=== PATIENT | male | born 1975 | race Caucasian/White ===

== ENCOUNTER 2018-10-09 19:51 | Emergency (ER) | payer BC ==
[2018-10-09] MEDS ORDERED: Acetaminophen 325 MG Tab PO ONE (20:28)
[2018-10-09] MEDS ORDERED: Sodium Chloride 0.9% 10 ML Syringe FLUSH PRN (20:28)
[2018-10-09] MEDS ORDERED: Ketorolac 30 MG/ML SDV IVPUSH SCH (20:30)
--- NOTE | 2018-10-09 20:52 | CT ---
Head CT Technique: Multiple axial sections through the brain were obtained. Intravenous contrast was not utilized. Comparison: No prior intracranial imaging is available. Findings: Ventricles along with basal cisterns and sulci over the convexities are within normal limits for the patient's age. No abnormal parenchymal densities are seen. No evidence of intracranial hemorrhage. No midline shift or mass effect is seen. Bone window settings were reviewed which shows the visualized sinuses to appear clear. No acute calvarial abnormality is seen. Impression: 1. Nothing acute is seen on noncontrast head CT exam. Diagnostic code #1
--- NOTE | 2018-10-09 21:46 | EDM.PDOC ---
ED HPI GENERAL MEDICAL PROBLEM - General Chief Complaint: Headache Stated Complaint: HEADACHE Time Seen by Provider: 10/09/18 20:05 Source of Information: Reports: Patient, Family (spouse), RN Notes Reviewed - History of Present Illness INITIAL COMMENTS - FREE TEXT/NARRATIVE: 43 year old with Saenz off and on for about the past 5 days. The Saenz has been generalized, some throbbing, some but only partial relief from ibprofen . Does not normally get Saenz's. Mildly dizzly and "off balance" earlier today at one time, now better. No nausea or vomiting. Has not been ill. No hx of Htn. Temporal Headache Pain Score (Numeric/FACES): 8 - Related Data Allergies Allergy/AdvReac Type Severity Reaction Status Date / Time No Known Allergies Allergy Verified 10/09/18 19:59 Home Meds: Home Meds Ibuprofen 800 mg PO ONCALL PRN 10/09/18 [History] Lisinopril 10 mg PO DAILY 10/09/18 [History] traMADol [Ultram] 50 mg PO Q6H PRN #10 tab 10/09/18 [Rx] Past Medical History Cardiovascular History: Reports: Hypertension Musculoskeletal History: Reports: Amputation Social & Family History - Tobacco Use Smoking Status *Q: Former Smoker Used Tobacco, but Quit: Yes Month/Year Tobacco Last Used: 2013 - Alcohol Use Days Per Week of Alcohol Use: 2 Number of Drinks Per Day: 2 Total Drinks Per Week: 4 - Recreational Drug Use Recreational Drug Use: No ED ROS GENERAL - Review of Systems Review Of Systems: See Below Constitutional: Denies: Fever, Chills, Diaphoresis HEENT: Denies: Ear Pain, Eye Pain, Sinus Problem, Throat Pain, Vertigo Respiratory: Denies: Shortness of Breath Cardiovascular: Denies: Chest Pain GI/Abdominal: Denies: Abdominal Pain, Nausea, Vomiting Musculoskeletal: Denies: Neck Pain, Shoulder Pain, Back Pain Skin: Reports: No Symptoms Neurological: Reports: Dizziness, Headache. Denies: Trouble Speaking, Difficulty Walking, Weakness - Physical Exam Exam: See Below General Appearance: Alert, No Apparent Distress Eye Exam: Bilateral Eye: PERRL Nose: Normal Inspection Throat/Mouth: Normal Inspection, Normal Oropharynx Head Exam: Atraumatic. No: Facial Swelling Neck: Supple, Full Range of Motion. No: Lymphadenopathy (L), Lymphadenopathy (R ) Respiratory/Chest: No Respiratory Distress, Lungs Clear, Normal Breath Sounds Cardiovascular: Regular Rate, Rhythm GI/Abdominal: Soft, Non-Tender Neuro Exam (Abbreviated): Alert, Oriented, No Motor/Sensory Deficits Extremities: Normal Inspection, Normal Range of Motion Skin Exam: Warm, Dry, Normal Color Course - Vital Signs Last Recorded V/S: Last Vital Signs Temp 98.6 F 10/09/18 20:00 Pulse 71 10/09/18 20:00 Resp 18 10/09/18 20:00 BP 136/90 10/09/18 20:00 Pulse Ox 99 10/09/18 20:00 - Orders/Labs/Meds Orders: Active Orders 24 hr Category Date Time Status Peripheral IV Care [RC] . DIRECTED Care 10/09/18 20:28 Active Ketorolac [Toradol] Med 10/09/18 20:30 Active 30 mg IVPUSH ONETIME Sodium Chloride 0.9% [Saline Flush] Med 10/09/18 20:28 Active 10 ml FLUSH ASDIRECTED PRN Peripheral IV Insertion Adult [OM.PC] Stat Oth 10/09/18 20:28 Ordered Medication Orders Ketorolac Tromethamine (Toradol) 30 mg IVPUSH ONETIME [facility] Last Admin: 10/09/18 20:45 Dose: 30 mg Sodium Chloride (Saline Flush) 10 ml FLUSH ASDIRECTED PRN PRN Reason: Keep Vein Open Last Admin: 10/09/18 20:45 Dose: 10 ml Labs: Laboratory Tests 10/09/18 10/09/18 10/09/18 Range/Units 20:29 20:32 20:32 WBC 9.08 H (4.23-9.07) K/mm3 RBC 5.22 (4.63-6.08) M/mm3 Hgb 15.8 (13.7-17.5) gm/L Hct 44.9 (40.1-51.0) % MCV 86.0 (79.0-92.2) fl MCH 30.3 (25.7-32.2) pg MCHC 35.2 (32.2-35.5) g/dl RDW Std Deviation 39.2 (35.1-43.9) fL Plt Count 154 L (163-337) K/mm3 MPV 10.4 (9.4-12.3) fl Neut % (Auto) 53.5 (34.0-67.9) % Lymph % (Auto) 36.0 (21.8-53.1) % [place] % (Auto) 9.1 (5.3-12.2) % Eos % (Auto) 0.9 (0.8-7.0) Baso % (Auto) 0.3 (0.1-1.2) % Neut # (Auto) 4.85 (1.78-5.38) K/mm3 Lymph # (Auto) 3.27 (1.32-3.57) K/mm3 [place] # (Auto) 0.83 H (0.30-0.82) K/mm3 Eos # (Auto) 0.08 (0.04-0.54) K/mm3 Baso # (Auto) 0.03 (0.01-0.08) K/mm3 ABG Carboxyhemoglobin 1.2 (0.00-1.50) %THgb Sodium 141 (136-145) mEq/L Potassium 3.7 (3.5-5.1) mEq/L Chloride 103 (98-107) mEq/L Carbon Dioxide 31 (21-32) mEq/L Anion Gap 10.7 (5-15) BUN 20 H (7-18) mg/dL Creatinine 1.1 (0.7-1.3) mg/dL Est Cr Clr Drug Dosing 76.53 mL/min Estimated GFR (MDRD) > 60 (>60) mL/min BUN/Creatinine Ratio 18.2 H (14-18) Glucose 104 (74-106) mg/dL Calcium 8.8 (8.5-10.1) mg/dL Total Bilirubin 0.7 (0.2-1.0) mg/dL AST 23 (15-37) U/L ALT 35 (16-63) U/L Alkaline Phosphatase 112 (46-116) U/L Total Protein 7.3 (6.4-8.2) g/dl Albumin 3.9 (3.4-5.0) g/dl Globulin 3.4 gm/dL Albumin/Globulin Ratio 1.2 (1-2) Meds: Medications Generic Name Dose Route Start Last Admin Trade Name Freq PRN Reason Stop Dose Admin Ketorolac Tromethamine 30 mg 10/09/18 20:30 10/09/18 20:45 Toradol IVPUSH 30 mg ONETIME ADRIANNE Administration Sodium Chloride 10 ml 10/09/18 20:28 10/09/18 20:45 Saline Flush FLUSH 10 ml ASDIRECTED PRN Administration Keep Vein Open Discontinued Medications Generic Name Dose Route Start Last Admin Trade Name Marlene PRN Reason Stop Dose Admin Acetaminophen 975 mg 10/09/18 20:28 10/09/18 20:44 Tylenol PO 10/09/18 20:29 975 mg NOW ONE Administration - Re-Assessments/Exams Free Text/Narrative Re-Assessment/Exam: 10/09/18 21:51 Labs, head CT, carbon monoxide level normal, checked that because he works as a entry level mechanical engineer in shop so that was a real possiblity. He has had good relief of Saenz for torodol IV and tylenol. Discharge instr. as documented. Departure - Departure Time of Disposition: 21:38 Disposition: Home, Self-Care 01 Condition: Fair Clinical Impression: Headache Qualifiers: Headache type: unspecified Headache chronicity pattern: episodic headache Intractability: not intractable Qualified Code(s): R51 - Headache - Discharge Information Prescriptions: traMADol [Ultram] 50 mg PO Q6H PRN #10 tab PRN Reason: Headache Instructions: General Headache Without Cause, [id number] Referrals: PCP,None [Primary Care Provider] - Forms: ED Department Discharge Additional Instructions: motrin or ibuprofen 800 mg 3 times daily with food until headache resolving. Tylenol or acetaminophen 2 tabs or 1000 mg in between doses of motrin 2 or 3 times daily for further pain relief. Tramadol in addition 50 mg 2 to 3 times daily only if Headache not relieved by motrin and tylenol. Follow up with a provider at our [facility] medical clinic if headache does not resolve within 2 to 3 days as expected. - My Orders Last 24 Hours: My Active Orders 10/09/18 20:28 Peripheral IV Care [RC] . DIRECTED Sodium Chloride 0.9% [Saline Flush] 10 ml FLUSH ASDIRECTED PRN Peripheral IV Insertion Adult [OM.PC] Stat 10/09/18 20:30 Ketorolac [Toradol] 30 mg IVPUSH ONETIME - Assessment/Plan Last 24 Hours: My Active Orders 10/09/18 20:28 Peripheral IV Care [RC] . DIRECTED Sodium Chloride 0.9% [Saline Flush] 10 ml FLUSH ASDIRECTED PRN Peripheral IV Insertion Adult [OM.PC] Stat 10/09/18 20:30 Ketorolac [Toradol] 30 mg IVPUSH ONETIME
== END 2018-10-09 21:55 | disposition home or self-care (01) ==
LOC: JD.ED 19:51
DX: R51 Headache (principal); I10 Essential (primary) hypertension; Z87.891 Personal history of nicotine dependence; Z79.899 Other long term (current) drug therapy
CPT/HCPCS: 36415; 70450; 80053; 82375; 85025; 96374; 99284; A9270; J1885

== ENCOUNTER 2019-11-15 13:04 | Emergency (ER) | payer BC ==
[2019-11-15] MEDS ORDERED: Sodium Chloride 0.9% 10 ML Syringe FLUSH PRN (13:44)
[2019-11-15] MEDS ORDERED: Midazolam 1 MG/ML 2 ML SDV IVPUSH ONE (13:44)
--- NOTE | 2019-11-15 14:27 | CR ---
Chest: Portable view of the chest was obtained. Comparison: No prior chest imaging is available. Heart size and mediastinum are within normal limits for portable technique. Lungs are clear with no acute parenchymal change. Bony structures are grossly intact. Impression: 1. Nothing acute is appreciated on portable chest x-ray. Diagnostic code #1 Study was dictated in MDT
--- NOTE | 2019-11-15 15:27 | EDM.PDOC ---
ED HPI GENERAL MEDICAL PROBLEM - General Chief Complaint: Chest Pain Stated Complaint: SOB Time Seen by Provider: 11/15/19 13:37 Source of Information: Reports: Patient, RN Notes Reviewed - History of Present Illness INITIAL COMMENTS - FREE TEXT/NARRATIVE: 44 yr old male comes in with chest pain, dyspnea after episode of lightheadedness at work. Has not been ill with cough fever or chills. He states his face, hands, arms became numb. Now somewhat better at time of my exam. No chest discomfort at time of exam. No longer short of breath. Treatments [employer]: Reports: Acetaminophen, Aspirin Chest Pain Score (Numeric/FACES): 10 - Related Data Allergies Allergy/AdvReac Type Severity Reaction Status Date / Time No Known Allergies Allergy Verified 11/15/19 13:24 Home Meds: Home Meds Ibuprofen 800 mg PO Q8HR PRN 10/09/18 [History] Acetaminophen [Tylenol Extra Strength] 1,000 mg PO DAILY 11/15/19 [History] Past Medical History HEENT History: Reports: None Cardiovascular History: Reports: Hypertension Respiratory History: Reports: None Gastrointestinal History: Reports: None Genitourinary History: Reports: None Musculoskeletal History: Reports: Amputation, Other (See Below) Other Musculoskeletal History: Left pointer through ring fingers amputated. Neurological History: Reports: None Psychiatric History: Reports: Anxiety Endocrine/Metabolic History: Reports: None Hematologic History: Reports: None Immunologic History: Reports: None Oncologic (Cancer) History: Reports: None Dermatologic History: Reports: None - Infectious Disease History Infectious Disease History: Reports: None Social & Family History - Tobacco Use Smoking Status *Q: Never Smoker - Caffeine Use Caffeine Use: Reports: Coffee - Recreational Drug Use Recreational Drug Use: No ED ROS GENERAL - Review of Systems Review Of Systems: See Below Constitutional: Denies: Fever, Chills, Diaphoresis HEENT: Reports: No Symptoms Respiratory: Reports: Shortness of Breath. Denies: Cough Cardiovascular: Reports: Chest Pain GI/Abdominal: Denies: Abdominal Pain, Nausea, Vomiting Musculoskeletal: Reports: No Symptoms Skin: Reports: No Symptoms Neurological: Reports: Dizziness ED EXAM, GENERAL - Physical Exam Exam: See Below General Appearance: Alert, Anxious, Mild Distress Eye Exam: Bilateral Eye: PERRL Head: Atraumatic Neck: Supple Respiratory/Chest: No Respiratory Distress (at time of my exam, he was tachypnic on arrival to ED with initial resp rate of 24), Lungs Clear, Normal Breath Sounds Cardiovascular: Regular Rate, Rhythm GI/Abdominal: Soft, Non-Tender Extremities: Normal Inspection. No: Pedal Edema, Leg Pain Neurological: Alert, No Motor/Sensory Deficits Skin Exam: Warm, Dry, Normal Color Course - Vital Signs Last Recorded V/S: Last Vital Signs Temp 97 F 11/15/19 13:21 Pulse 74 11/15/19 13:21 Resp 24 H 11/15/19 13:21 BP 153/86 H 11/15/19 13:21 Pulse Ox 100 11/15/19 13:21 - Orders/Labs/Meds Orders: Active Orders 24 hr Category Date Time Status EKG 12 Lead [EKG Documentation Completion] [RC] STAT Care 11/15/19 13:39 Active Peripheral IV Care [RC] . DIRECTED Care 11/15/19 13:44 Active CORONAVIRUS COVID-19 PCR [facility] Stat Lab 11/15/19 14:25 Received Peripheral IV Insertion Adult [OM.PC] Stat Oth 11/15/19 13:44 Ordered Labs: Laboratory Tests 11/15/19 11/15/19 Range/Units 14:20 14:20 WBC 7.23 (4.23-9.07) K/mm3 RBC 4.95 (4.63-6.08) M/mm3 Hgb 15.0 (13.7-17.5) gm/dl Hct 43.4 (40.1-51.0) % MCV 87.7 (79.0-92.2) fl MCH 30.3 (25.7-32.2) pg MCHC 34.6 (32.2-35.5) g/dl RDW Std Deviation 41.5 (35.1-43.9) fL Plt Count 156 L (163-337) K/mm3 MPV 10.9 (9.4-12.3) fl Neut % (Auto) 64.0 (34.0-67.9) % Lymph % (Auto) 25.6 (21.8-53.1) % [place] % (Auto) 8.6 (5.3-12.2) % Eos % (Auto) 1.1 (0.8-7.0) Baso % (Auto) 0.4 (0.1-1.2) % Neut # (Auto) 4.63 (1.78-5.38) K/mm3 Lymph # (Auto) 1.85 (1.32-3.57) K/mm3 [place] # (Auto) 0.62 (0.30-0.82) K/mm3 Eos # (Auto) 0.08 (0.04-0.54) K/mm3 Baso # (Auto) 0.03 (0.01-0.08) K/mm3 Sodium 141 (136-145) mEq/L Potassium 4.3 (3.5-5.1) mEq/L Chloride 104 (98-107) mEq/L Carbon Dioxide 26 (21-32) mEq/L Anion Gap 15.3 H (5-15) BUN 15 (7-18) mg/dL Creatinine 1.1 (0.7-1.3) mg/dL Est Cr Clr Drug Dosing 75.72 mL/min Estimated GFR (MDRD) > 60 (>60) mL/min BUN/Creatinine Ratio 13.6 L (14-18) Glucose 85 (74-106) mg/dL Calcium 8.8 (8.5-10.1) mg/dL Total Bilirubin 0.7 (0.2-1.0) mg/dL AST 29 (15-37) U/L ALT 38 (16-63) U/L Alkaline Phosphatase 116 (46-116) U/L Total Protein 7.3 (6.4-8.2) g/dl Albumin 3.8 (3.4-5.0) g/dl Globulin 3.5 gm/dL Albumin/Globulin Ratio 1.1 (1-2) Meds: Medications Discontinued Medications Generic Name Dose Route Start Last Admin Trade Name Freq PRN Reason Stop Dose Admin Midazolam HCl 2 mg 11/15/19 13:44 11/15/19 14:16 Versed 1 Mg/Ml IVPUSH 11/15/19 13:45 1 mg ONETIME ONE Administration Sodium Chloride 10 ml 11/15/19 13:44 11/15/19 14:16 Saline Flush FLUSH 10 ml ASDIRECTED PRN Administration Keep Vein Open - Re-Assessments/Exams Free Text/Narrative Re-Assessment/Exam: 11/15/19 17:37 CBC, EKG, labs, CXR , sats 99 to 100. best screen has been done primarily because of his strong concern. His rapid onset of sx shows that he has had panic attack, not at a typical for best virus illness, that has been discussed with patient. Departure - Departure Time of Disposition: 15:22 Disposition: Home, Self-Care 01 Condition: Fair Clinical Impression: Atypical chest pain, Hyperventilation syndrome Dyspnea Qualifiers: Dyspnea type: unspecified Qualified Code(s): R06.00 - Dyspnea, unspecified Instructions: Shortness of Breath, Adult Referrals: PCP,None [Primary Care Provider] - Forms: ED Department Discharge Additional Instructions: Your heart and lungs have checked out normal today. Your chest Xray is completely normal. You do not have pneumonia. Your lab work checked today is normal. The sudden onset of your symptoms today are not typical for the coronavirus infection. To be safe you have been screened for best virus while here in the ED. You will be called when results are available to us which usually takes about 2 days. Stay home until you get the results called to you. Follow up with your regular clinic provider or one of our clinic providers as needed. Sepsis Event Note - Evaluation Sepsis Screening Result: No Definite Risk - Focused Exam Vital Signs: Vital Signs Temp Pulse Resp BP Pulse Ox 11/15/19 13:21 97 F 74 24 H 153/86 H 100 Date Exam was Performed: 11/15/19 Time Exam was Performed: 17:32 - My Orders Last 24 Hours: My Active Orders 11/15/19 13:39 EKG 12 Lead [EKG Documentation Completion] [RC] STAT 11/15/19 13:44 Peripheral IV Care [RC] . DIRECTED Peripheral IV Insertion Adult [OM.PC] Stat 11/15/19 14:25 CORONAVIRUS COVID-19 PCR [facility] Stat - Assessment/Plan Last 24 Hours: My Active Orders 11/15/19 13:39 EKG 12 Lead [EKG Documentation Completion] [RC] STAT 11/15/19 13:44 Peripheral IV Care [RC] . DIRECTED Peripheral IV Insertion Adult [OM.PC] Stat 11/15/19 14:25 CORONAVIRUS COVID-19 PCR [facility] Stat
== END 2019-11-15 16:16 | disposition home or self-care (01) ==
LOC: JD.ED 13:04
DX: R07.89 Other chest pain (principal); R06.00 Dyspnea, unspecified; R06.4 Hyperventilation; I10 Essential (primary) hypertension
CPT/HCPCS: 36415; 71045; 80053; 85025; 87635; 93005; 96374; 99285; J2250; 93010; 99284; U0002

== ENCOUNTER 2019-11-20 13:08 | Emergency (ER) | payer BC ==
[2019-11-20] MEDS ORDERED: LORazepam 1 MG Tab PO ONE (15:40)
--- NOTE | 2019-11-20 15:48 | EDM.PDOC ---
ED HPI GENERAL MEDICAL PROBLEM - General Chief Complaint: Respiratory Problem Stated Complaint: SOB/COVID NEGATIVE TEST Time Seen by Provider: 11/20/19 14:43 Source of Information: Reports: Patient History Limitations: Reports: No Limitations - History of Present Illness INITIAL COMMENTS - FREE TEXT/NARRATIVE: TRIAGE NOTE -- Pt. here for dyspnea. States that he also has a headache. Had chills as well. No fever, no cough. Was tested for covid last week and it was negative. Is worried he has diabetes. Patient has a plethora of complaints. Vague complaints of headache, chest tightness, shortness of breath, worried about whether he has diabetes, as well as others. There are no reported symptoms suggestive of an acute process requiring further work-up at this time. Patient notes that he has a history of panic attacks. He does not have any medications to take for this and would like some. Specifically there has been no fever, sweating, hoda shortness of breath, or any other report that would suggest a need for full repeated ER work-up. Headache Pain Score (Numeric/FACES): 5 - Related Data Allergies Allergy/AdvReac Type Severity Reaction Status Date / Time No Known Allergies Allergy Verified 11/20/19 14:29 Home Meds: Home Meds ALPRAZolam [Xanax] 0.5 mg PO DAILY PRN #6 tablet 11/20/19 [Rx] Past Medical History HEENT History: Reports: None Cardiovascular History: Reports: Hypertension Respiratory History: Reports: None Gastrointestinal History: Reports: None Genitourinary History: Reports: None Musculoskeletal History: Reports: Amputation, Other (See Below) Other Musculoskeletal History: Left pointer through ring fingers amputated. Neurological History: Reports: None Psychiatric History: Reports: Anxiety Endocrine/Metabolic History: Reports: None Hematologic History: Reports: None Immunologic History: Reports: None Oncologic (Cancer) History: Reports: None Dermatologic History: Reports: None - Infectious Disease History Infectious Disease History: Reports: None Social & Family History - Tobacco Use Smoking Status *Q: Former Smoker (Quit 3 years ago) - Caffeine Use Caffeine Use: Reports: None - Recreational Drug Use Recreational Drug Use: No ED ROS GENERAL - Review of Systems Review Of Systems: Comprehensive ROS is negative, except as noted in HPI. ED EXAM, GENERAL - Physical Exam Exam: See Below Exam Limited By: No Limitations General Appearance: Alert, WD/WN, No Apparent Distress, Anxious Eye Exam: Bilateral Eye: EOMI, PERRL Ears: Normal External Exam Nose: Normal Inspection Throat/Mouth: Normal Inspection Head: Atraumatic, Normocephalic Neck: Normal Inspection, Supple, Non-Tender Respiratory/Chest: No Respiratory Distress, Lungs Clear, Normal Breath Sounds Cardiovascular: Regular Rate, Rhythm, No Edema GI/Abdominal: Soft, Non-Tender Back Exam: Normal Inspection Extremities: Normal Inspection Neurological: Alert, Oriented Psychiatric: Anxious Skin Exam: Warm, Dry Course - Vital Signs Last Recorded V/S: Last Vital Signs Temp 36.3 C 11/20/19 14:26 Pulse 75 11/20/19 14:26 Resp 11 L 11/20/19 14:26 BP 135/93 H 11/20/19 14:26 Pulse Ox 98 11/20/19 14:26 - Orders/Labs/Meds Meds: Medications Discontinued Medications Generic Name Dose Route Start Last Admin Trade Name Freq PRN Reason Stop Dose Admin Lorazepam 1 mg 11/20/19 15:40 Ativan PO 11/20/19 15:41 ONETIME ONE - Re-Assessments/Exams Free Text/Narrative Re-Assessment/Exam: 11/20/19 15:47 Findings from the recent visit and discussed with the patient. There is no evidence of diabetes. There is nothing in his presentation that suggests an acute condition requiring further ER work-up at this time. The patient suffers from panic attacks and would like some medications to moderate this. 1 mg Ativan p.o. administered in the ER. The patient was driven here by family and will not be driving home. A small quantity of Xanax have been prescribed for use at home. Strict precautions for return to ER. Departure - Departure Time of Disposition: 15:48 Disposition: Home, Self-Care 01 Condition: Good Clinical Impression: Anxiety, Multiple somatic complaints, History of panic attacks - Discharge Information Prescriptions: ALPRAZolam [Xanax] 0.5 mg PO DAILY PRN #6 tablet PRN Reason: Anxiety Instructions: Living With Anxiety Referrals: PCP,None [Primary Care Provider] - Additional Instructions: Referred to primary care. Sepsis Event Note - Evaluation Sepsis Screening Result: No Definite Risk - Focused Exam Vital Signs: Vital Signs Temp Pulse Resp BP Pulse Ox 11/20/19 14:26 36.3 C 75 11 L 135/93 H 98 Date Exam was Performed: 11/20/19 Time Exam was Performed: 15:42
== END 2019-11-20 16:10 | disposition home or self-care (01) ==
LOC: JD.ED 13:08
DX: F41.0 Panic disorder [episodic paroxysmal anxiety] (principal); I10 Essential (primary) hypertension; Z87.891 Personal history of nicotine dependence
CPT/HCPCS: 99284; A9270

== ENCOUNTER 2024-04-23 11:25 | Emergency (ER) | payer SELFPAY ==
[2024-04-23 12:09] LABS: BASOPHILS PERCENT AUTO 0.4 % (0.0-1.0); EOSINOPHILS PERCENT AUTO 0.5 % (0.0-6.0); HEMATOCRIT 46.4 % (42.0-52.0); IMMATURE GRAN ABSOLUTE AUTO 0.04 K/mm3 (0.00-0.05); IMMATURE GRAN PERCENT AUTO 0.5 % (0.0-0.4); LYMPHOCYTES ABSOLUTE AUTO 1.7 K/mm3 (1.0-4.8); LYMPHOCYTES PERCENT AUTO 21.3 % (24.0-44.0); MEAN CORPUSCULAR HEMOGLOBIN 30.2 pg (28.0-32.0); MEAN CORPUSCULAR HGB CONC 34.5 g/dl (32.0-36.0); MEAN CORPUSCULAR VOLUME 87.5 fl (83.0-99.0); MEAN PLATELET VOLUME 10.2 fl (9.4-12.4); MONOCYTES ABSOLUTE AUTO 0.5 K/mm3 (0.0-0.8); MONOCYTES PERCENT AUTO 6.7 % (0.0-8.0); NEUTROPHILS ABSOLUTE AUTO 5.6 K/mm3 (1.8-7.7); NEUTROPHILS PERCENT AUTO 70.6 % (41.0-71.0); PLATELET COUNT,PLT 148 K/mm3 (150-400); WHITE BLOOD CELL COUNT,WBC 7.93 K/mm3 (3.9-11.3)
[2024-04-23 12:35] LABS: INR 1.04
[2024-04-23 12:37] LABS: PTT,PARTIAL THROMBOPLSTIN TIME 25.1 SECONDS (21.7-31.4)
[2024-04-23] MEDS: Sodium Chloride 0.9% 1,000 ML IV SCH (12:45)
[2024-04-23] MEDS: LORazepam 0.5 MG Tab PO ONE (12:45)
[2024-04-23 12:48] LABS: A/G RATIO 1.2 (1-2); ALBUMIN 4.1 g/dl (3.4-5.0); BILIRUBIN TOTAL 0.5 mg/dL (0.2-1.0); CALCIUM 8.8 mg/dL (8.5-10.1); EST CRCL DRUG DOSING (CG) 78.86 mL/min; MAGNESIUM 1.8 mg/dL (1.8-2.4); PROTEIN TOTAL,TP 7.6 g/dl (6.4-8.2)
[2024-04-23] MEDS: Ketorolac 30 MG/ML SDV IVPUSH ONE (13:07)
[2024-04-23] MEDS: Alum Hydrox/Mag Hydrox/Simeth 30 ML, Lidocaine 2% 15 ML PO ONE (14:30)
== END 2024-04-23 15:08 | disposition home or self-care (01) ==
LOC: JD.ED 11:25
DX: R07.9 Chest pain, unspecified (principal); R45.82 Worries; I10 Essential (primary) hypertension; Z79.899 Other long term (current) drug therapy
CPT/HCPCS: 36415; 71045; 80053; 83735; 83880; 84484; 85025; 85610; 85730; 93005; 96361; 96374; 99285; A9270; J1885; J7030; 93010; 99284

== ENCOUNTER 2024-10-04 02:42 | Emergency (ER) | payer SELFPAY ==
[2024-10-04 03:19] LABS: BASOPHILS PERCENT AUTO 0.3 % (0.0-1.0); EOSINOPHILS ABSOLUTE AUTO 0.2 K/mm3 (0.0-0.4); EOSINOPHILS PERCENT AUTO 1.7 % (0.0-6.0); HEMATOCRIT 49.3 % (42.0-52.0); HEMOGLOBIN 17.2 gm/dl (14.0-18.0); IMMATURE GRAN ABSOLUTE AUTO 0.03 K/mm3 (0.00-0.05); IMMATURE GRAN PERCENT AUTO 0.3 % (0.0-0.4); LYMPHOCYTES ABSOLUTE AUTO 3.6 K/mm3 (1.0-4.8); LYMPHOCYTES PERCENT AUTO 42.3 % (24.0-44.0); MEAN CORPUSCULAR HEMOGLOBIN 30.5 pg (28.0-32.0); MEAN CORPUSCULAR HGB CONC 34.9 g/dl (32.0-36.0); MEAN CORPUSCULAR VOLUME 87.4 fl (83.0-99.0); MEAN PLATELET VOLUME 10.1 fl (9.4-12.4); MONOCYTES ABSOLUTE AUTO 0.8 K/mm3 (0.0-0.8); MONOCYTES PERCENT AUTO 8.7 % (0.0-8.0); NEUTROPHILS PERCENT AUTO 46.7 % (41.0-71.0); PLATELET COUNT,PLT 157 K/mm3 (150-400); RED BLOOD CELL COUNT 5.64 M/mm3 (4.52-5.90); WHITE BLOOD CELL COUNT,WBC 8.61 K/mm3 (3.9-11.3)
[2024-10-04 03:29] LABS: INR 1.04
[2024-10-04] MEDS: Acetaminophen 325 MG Tab PO ONE (03:30)
[2024-10-04] MEDS: oxyCODONE 5 MG Tab PO ONE (03:30)
[2024-10-04] MEDS: Sodium Chloride 0.9% 1,000 ML IV ONE (03:31)
[2024-10-04 03:34] LABS: ALBUMIN 3.8 g/dl (3.4-5.0); ANION GAP 10.8 (5-15); BILIRUBIN TOTAL 0.6 mg/dL (0.2-1.0); BUN/CREATININE RATIO 11.7 (14-18); CALCIUM 8.6 mg/dL (8.5-10.1); CREATININE 1.2 mg/dL (0.7-1.3); EST CRCL DRUG DOSING (CG) 65.72 mL/min; MAGNESIUM 2.1 mg/dL (1.8-2.4); PROTEIN TOTAL,TP 7.7 g/dl (6.4-8.2)
[2024-10-04 03:45] LABS: POTASSIUM,K 3.8 mEq/L (3.5-5.1)
[2024-10-04] MEDS: Ondansetron 4 MG/2 ML SDV IVPUSH ONE ×2 (05:05)
== END 2024-10-04 06:05 | disposition home or self-care (01) ==
LOC: JD.ED 02:42
DX: R07.89 Other chest pain (principal); I10 Essential (primary) hypertension; Z86.16 Personal history of COVID-19; Z87.891 Personal history of nicotine dependence; Z79.899 Other long term (current) drug therapy
CPT/HCPCS: 36415; 71045; 71045-26; 80053; 82550; 83735; 83880; 84484; 85025; 85610; 87428-QW; 93005; 93010; 96361; 96374; 99284; 99285-25; A9270-GY; J2405; J7030